=== PATIENT | male | born 1990 | race Caucasian/White ===

== ENCOUNTER 2023-10-09 20:04 | Emergency (ER) | payer OTHER, SELFPAY ==
[2023-10-09] VITALS (33 sets, daily range): BP systolic 115–129; BP diastolic 64–84; PULSE 78–89; RESP 12–16; TEMP 36.7; O2SAT 86–96
[2023-10-09] MEDS: Normal Saline 1,000 ML 1000 ML IV (20:05)
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
[2023-10-09 20:10] LABS: Abs Immature Grans 0.02 10^3/uL (0.0-0.06); Absolute Basophil Count 0.02 10^3/uL (0.0-0.2); Absolute Eosinophil Count 0.93 10^3/uL (0.0-0.7); Absolute Lymphocyte Count 1.16 10^3/uL (1.2-3.4); Absolute Monocyte Count 0.35 10^3/uL (0.1-0.8); Absolute Neutrophil Count 4.45 10^3/uL (1.2-6.7); Basophils % 0.3; Eosinophils % 13.4; HCT 49.6 % (40.0-50.0); HGB 17.2 g/dL (13.5-17.5); Immature Grans % 0.3; Lymphocytes % 16.7; MCH 30.7 pg (27.0-33.0); MCHC 34.7 % (32.0-36.0); MCV 88 fL (80-95); MPV 9.2 fL (8.0-11.0); Monocytes % 5.1; Neutrophils % 64.2; Platelet Count 260 10^3/uL (130-400); RBC 5.61 10^6/uL (4.36-5.78); RDW 13.5 % (11.8-14.1); RDW-SD 43.8 fL; WBC 6.93 10^3/uL (4.4-10.8)
[2023-10-09] MEDS: Naloxone 0.4 MG/ML VIAL 0.2 MG IVP (20:12)
[2023-10-09 20:19] LABS: Anion Gap 12.6 mmol/L (3-11); BUN 13 mg/dL (7-18); CO2 25.4 mmol/L (21.0-32.0); CREATININE 1.1 mg/dL (0.70-1.30); Calcium 8.1 mg/dL (8.5-10.1); Chloride 107 mmol/L (98-107); Estimated GFR 90.34 (mL/min/1.73m2); Glucose 125 mg/dL (74-106); Potassium 3.6 mmol/L (3.5-5.1); Sodium 145 mmol/L (136-145)
[2023-10-09] MEDS: Calcium Carbonate *TUMS* 500 MG CHEW 1000 MG PO (20:38)
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
[2023-10-10 00:28] VITALS: O2SAT 95
[2023-10-10 00:30] VITALS: O2SAT 93
[2023-10-10 00:33] VITALS: PULSE 90; RESP 18; O2SAT 98
== END 2023-10-10 00:40 | disposition home or self-care (01) ==
PROVIDERS: Emergency Medicine; Emergency Provider Student in an Organized Health Care Education/Training Program
DX: T40.414A Poisoning by fentanyl or fentanyl analogs, undetermined, initial encounter (principal); R40.0 Somnolence; J96.22 Acute and chronic respiratory failure with hypercapnia; J96.21 Acute and chronic respiratory failure with hypoxia; E83.51 Hypocalcemia; Y92.810 Car as the place of occurrence of the external cause
CPT/HCPCS: 00123; 80048; 96361; 96374; 99284; 71045; 85025; J2310